=== PATIENT | female | born 2000 | race Two or more races ===

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

== ENCOUNTER → 2021-06-19 15:55 | Outpatient (BNVA) | payer OTHER, SELFPAY | PROVIDERS: PCP Physician Assistant; Referring Provider Physician Assistant; Visit Provider Nurse Practitioner | DX: K21.9 Gastro-esophageal reflux disease without esophagitis (principal); K59.00 Constipation, unspecified; R11.0 Nausea; R63.4 Abnormal weight loss | CPT/HCPCS: 99202 ==

== ENCOUNTER 2021-07-18 11:46 | Outpatient (REF) | payer OTHER, SELFPAY ==
--- NOTE | ~2021-07-18 | US_ITS ---
EXAMINATION: US ABDOMEN COMPLETE CLINICAL INFORMATION: Constipation. COMPARISON: None TECHNIQUE: Real-time imaging of the abdominal viscera. FINDINGS: PANCREAS: Normal. ABDOMINAL AORTA: The proximal, mid, and distal segments are normal in caliber. INFERIOR VENA CAVA: Visualized portions are normal. LIVER: Normal. The liver is normal in size. The liver contour is normal. Parenchymal echogenicity is normal. No focal hepatic lesion. There is no intrahepatic biliary duct dilatation seen. GALLBLADDER: Normal. The gallbladder is physiologically distended without evidence of stones, sludge, polyps, wall thickening or pericholecystic fluid. COMMON BILE DUCT: Normal in caliber measuring 0.4 cm in diameter. RIGHT KIDNEY: At the interpolar aspect, a 3 mm punctate focus is seen, which does not meet formal ultrasound criteria for a calculus. No hydronephrosis. No definite renal calculi or focal parenchymal lesions. The kidney measures 11.2 cm in maximum dimension. LEFT KIDNEY: Normal. No hydronephrosis. No renal calculi or focal parenchymal lesions. The kidney measures 10.3 cm in maximum dimension. SPLEEN: Normal. The spleen measures 10.1 cm in maximum dimension. FREE FLUID: None. US/US abdomen complete IMPRESSION: Unremarkable examination.
[2021-07-18 13:11] LABS: Alanine Aminotransferase 13 U/L (0-31); Albumin Level 4.4 g/dL (3.5-5.0); Alkaline Phosphatase 38 U/L (39-117); Anion Gap 12 (12-20); Aspartate Amino Transferase 15 U/L (5-31); Bilirubin Total 0.6 mg/dL (0.0-1.0); Blood Urea Nitrogen 10 mg/dL (9-16); C Reactive Protein 0.12 mg/dL (< or = 0.50); Calcium 9.2 mg/dL (8.4-10.2); Carbon Dioxide 23 mmol/L (22-29); Chloride 107 mmol/L (96-108); Estimated Glomerular Filt Rate > 60; Glucose Random 86 mg/dL (60-115); Potassium 4.4 mmol/L (3.3-5.1); Sodium 138 mmol/L (135-145)
[2021-07-18 13:33] LABS: TSH reflex Free T4 0.76 uIU/mL (0.32-4.0)
[2021-07-18 14:15] LABS: Appearance Urine CLEAR; Color Urine YELLOW; Glucose Urine UA NEG (NEG); Leukocyte Esterase Urine 2+ (NEG); Nitrite Urine NEG (NEG); PH 6.5 (5.0-8.0); UACC Culture Trigger YES; Urine Blood NEG (NEG); Urine Ketones NEG (NEG); Urine Protein NEG (NEG-TRACE)
[2021-07-18 14:53] LABS: Bacteria Urine 1+ /LPF; RBC Urine 0-2 /HPF (0); Squamous Epithelial Cell Urine 1+ /LPF
== END 2021-07-18 11:47 | disposition home or self-care (01) ==
LOC: HO.US 11:46
PROVIDERS: PCP Physician Assistant; Visit Provider Nurse Practitioner
DX: K21.9 Gastro-esophageal reflux disease without esophagitis (principal); K59.00 Constipation, unspecified; R11.0 Nausea; R63.4 Abnormal weight loss
CPT/HCPCS: 36415; 76700; 80053; 81001; 81003; 84443; 86140; 87086; 87338

== ENCOUNTER 2021-11-20 13:26 | Outpatient (AMB) | payer OTHER, SELFPAY ==
[2021-11-20 13:45] VITALS: BP 120/70; PULSE 88; O2SAT 99; BMI 30.4
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
== END 2021-11-20 14:40 | disposition home or self-care (01) ==
LOC: HO.HMGP 13:26
PROVIDERS: PCP Physician Assistant; Visit Provider Physician Assistant
DX: Z13.220 Encounter for screening for lipoid disorders (principal); L30.9 Dermatitis, unspecified; K21.9 Gastro-esophageal reflux disease without esophagitis; F41.9 Anxiety disorder, unspecified; F32.9 Major depressive disorder, single episode, unspecified; R63.4 Abnormal weight loss; Z30.011 Encounter for initial prescription of contraceptive pills; Z00.01 Encounter for general adult medical examination with abnormal findings; Z23 Encounter for immunization; J45.20 Mild intermittent asthma, uncomplicated; Z13.30 Encounter for screening examination for mental health and behavioral disorders, unspecified
CPT/HCPCS: 90471; 90686; 99499

== ENCOUNTER 2022-06-11 13:06 | Emergency (ER) | payer OTHER, SELFPAY ==
--- NOTE | ~2022-06-11 | CT_ITS ---
EXAMINATION: CT ABDOMEN AND PELVIS WITHOUT CONTRAST CLINICAL INFORMATION: Right-sided abdominal pain, vomiting and diarrhea. COMPARISON: None available. TECHNIQUE: Multidetector volumetric imaging was performed from the superior aspect of the liver through the pubic symphysis. Sagittal and coronal reformatted images were obtained on the technologist's workstation. This CT examination was performed using dose optimization techniques as appropriate, variously including the following: *Automated exposure control *Adjustment of mA and/or kV according to patient size (this includes techniques or standardized protocols for targeted exams where dose is matched to indication/reason for exam; i.e. extremities or head) *Use of iterative reconstruction technique DLP: 552 mGy-cm FINDINGS: LUNG BASES: The visualized lung bases are unremarkable. LIVER, GALLBLADDER, AND BILIARY TREE: The liver is normal in size, shape, and attenuation. No focal hepatic lesion or biliary ductal dilatation is present. The gallbladder is unremarkable with no evidence of radiopaque gallstones, gallbladder wall thickening, or obvious pericholecystic inflammatory changes. PANCREAS: Unremarkable. SPLEEN: Unremarkable. ADRENAL GLANDS: Unremarkable. KIDNEYS AND URETERS: The kidneys are normal in size, shape, and attenuation. No hydronephrosis, hydroureter, or calculi seen. No perinephric stranding. BLADDER: Unremarkable. GASTROINTESTINAL TRACT: There is scattered stool, gas and groundglass seen throughout the colon without distention. The small bowel loops are normal caliber. Appendix is normal caliber. No free fluid or free air seen. ABDOMINAL WALL: A small umbilical hernia containing fat is noted.. LYMPH NODES: Normal. VASCULAR: Unremarkable. PELVIC VISCERA: The uterus is anteverted and appears unremarkable. No free air or free fluid seen. OSSEOUS STRUCTURES: Unremarkable. CT/CT abdomen pelvis wo IV con IMPRESSION: Mild constipation otherwise no acute process seen. Fleischner guidelines were followed.
[2022-06-11 13:32] VITALS: BP 152/98; PULSE 93; RESP 18; TEMP 36.2; O2SAT 98; BMI 28.9
--- NOTE | 2022-06-11 13:33 | ED.ABDPAIN ---
HPI - Abdominal Pain General Chief Complaint: Abdominal Pain Stated Complaint: GI issues Time Seen by Provider: 06/11/22 19:17 Source: patient and family Mode of arrival: ambulatory Limitations: no limitations History of Present Illness HPI narrative: 21 yo female with history of asthma, anxiety, depression, GERD and eczema presents to the ER for evaluation of 5 days of upset stomach, nausea, and diarrhea. she states she has had generalized abdominal pain and ongoing nausea with intermittent dry heaving after eating. No vomit. She reports frequent loose stools, no blood or bile. But she did pass some mucus. She states she has seen GI in the past but never followed up. She is worried about a food intolerance like gluten. She denies any fevers, chills, urinary symptoms or pelvic pain. She denies chance of . No known sick contacts. She does get anxiety and nausea associated with anxiety. MD elicited complaint: abdominal pain Onset (ago): day(s) (5) Pain Consistency: intermittent Location: diffuse Severity: moderate Quality: aching Radiation: none Migration to: no migration Exacerbating factors: eating Relieving factors: nothing Associated symptoms: nausea, vomiting and diarrhea Related Data Home Medications Medication Instructions Recorded Confirmed fluoxetine 20 mg capsule mg PO 02/07/21 11/20/21 methylphenidate HCl 36 mg 36 mg PO BEDTIME 02/07/21 11/20/21 tablet,extended release 24 hr (Concerta) Previous Rx's Medication Instructions Recorded ibuprofen 600 mg tablet 600 mg PO Q8H PRN menstrual cramps 02/07/21 #90 tabs albuterol sulfate 90 mcg/actuation 2 puff inhalation Q4-6H PRN 10/19/21 aerosol inhaler shortness of breath or wheezing #6.7 grams triamcinolone acetonide 0.1 % 1 appl topical BID #80 grams 11/20/21 topical cream famotidine 40 mg tablet 40 mg PO DAILY #30 tabs 11/30/21 albuterol sulfate 90 mcg/actuation 2 puff inhalation Q4-6H PRN 12/31/21 aerosol inhaler (Proventil HFA) shortness of breath or wheezing #8.5 grams loratadine 10 mg tablet 10 mg PO DAILY PRN allergy 05/03/22 symptoms #90 tabs norethindrone (contraceptive) 0.35 0.35 mg PO DAILY #84 tabs 05/03/22 mg tablet ondansetron 4 mg disintegrating 4 mg PO Q8H PRN nausea and 06/11/22 tablet vomiting #10 tabs Allergies Allergy/AdvReac Type Severity Reaction Status Date / Time amoxicillin Allergy Unknown hives Verified 06/19/21 16:11 Review of Systems Review of Systems Yes all other systems are reviewed and are negative [facility] Past Medical History Surgical History (Updated 11/20/21 @ 13:46 by Amber Alcantara RN) No pertinent past surgical history Family History Family History (Updated 11/20/21 @ 13:49 by Amber Alcantara RN) Mother Hiatal hernia Type 1 diabetes Hypertension Fibromyalgia Depression Anxiety Father Hypertension Anxiety Depression Bipolar 1 disorder History of knee replacement Hypoglycemia Drug use disorder Social History Social History (Updated 11/20/21 @ 13:50 by Amber Alcantara RN) Household Members: Family Advance Directives: No Advance Directives Information Provided: No Cognitive needs: No Hearing needs: No Vision needs: Yes Physical Exam ED Vital Signs: Vital Signs - 24 hr 06/11/22 13:32 Temperature 97.1 F Pulse Rate 93 Respiratory Rate 18 Blood Pressure 152/98 H Pulse Oximetry 98 Oxygen Delivery Method Room Air BMI result Body Mass Index 28.9 Appearance: Alert. Oriented X3. No acute distress. Head: normocephalic, atraumatic. Eyes: Pupils equal, round and reactive to light. ENT: Pharynx normal. No tonsillar swelling or exudate. Neck: Normal inspection. Neck supple. CVS: Normal heart rate and rhythm. Pulses normal. Respiratory: No respiratory distress. Breath sounds normal. Abdomen: Soft with mild generalized tenderness, normal active BS x4 Skin: Skin warm and dry. Normal skin color. Normal skin turgor. No rashes. Extremities: No lower extremity edema. No joint swelling. Neuro/psych: Oriented X 3. No motor deficit. No sensory deficit. CN II-XII intact. Normal speech and cognition. Course Course Course Narrative: RME - 21 y/o female presents to the ER for evaluation of nausea and post-prandial watery diarrhea for the last 4 days. She has pain in her stomach and right side of her abd after she eating and intermittent dry heaving. Family history of Crohn's. She has a GI provider she never followed up with. Plan: labs and CT scan abd/pelvis Medical Decision Making Medical Decision Making [facility] Narrative: 21-year-old female presents the ER for evaluation of 5 days of intermittent abdominal pains, nausea, dry heaving, diarrhea. She is concerned about food intolerance like a gluten allergy. She was due to see GI but never followed up. She has an appointment at the end of June. On exam her abdomen is soft, mild diffuse tenderness but no point tenderness. No rebound or guarding. Her lab workup was unremarkable. CT scan showed some mild constipation but no acute findings. At this time patient is stable for discharge home with supportive care and outpatient follow-up. Jeff Ventura sent to her pharmacy. Encouraged food diary. Stable for DC Differential Diagnosis Differential Diagnoses: The differential diagnosis associated with the presentation includes gastroenteritis, gallstones, gastritis, GERD, appendicitis, cholecystitis, colitis, diverticulitis Lab Data [facility] Lab Attestation statement: I reviewed the patient's lab results. unremarkable lab workup 06/11/22 14:20 06/11/22 14:20 Labs: Lab Results 06/11/22 06/11/22 Range/Units 14:20 14:20 WBC 11.7 H (4.8-10.8) X10*3/uL RBC 5.45 (4.20-5.50) X10*6/uL Hgb 13.8 (12.0-16.0) g/dl Hct 43.9 (37.0-47.0) % MCV 80.6 (80.0-98.0) fL MCH 25.3 L (27.0-33.0) pg MCHC 31.4 (31.0-35.0) g/dl RDW 13.8 (11.0-16.0) % Plt Count 333 (160-400) X10*3/uL MPV 11.8 (9.4-12.3) fL Immature Gran % (Auto) 0.2 (0.0-0.4) % Neut % (Auto) 64.6 (45-73) % Lymph % (Auto) 23.7 (20-40) % Grady % (Auto) 8.6 (2-11) % Eos % (Auto) 2.2 (0-4) % Baso % (Auto) 0.7 (0-2) % Lymph # (Auto) 2.8 (1.2-4.9) X10*3/uL Grady # (Auto) 1.0 (0.1-1.2) X10*3/uL Eos # (Auto) 0.3 (0.0-0.4) X10*3/uL Baso # (Auto) 0.1 (0.0-0.2) X10*3/uL Abs Immat Gran (auto) 0.02 (0.00-0.03) X10*3/uL Absolute Neuts (auto) 7.6 (2.0-8.3) x10*3/uL Absolute Nucleated RBC 0.000 (0.0-0.012) X10*3/uL Nucleated RBC % (auto) 0.0 (0.0-0.2) /100WBC Sodium 141 (135-145) mmol/L Potassium 4.0 (3.3-5.1) mmol/L Chloride 108 (96-108) mmol/L Carbon Dioxide 19 L (22-29) mmol/L Anion Gap 18 (12-20) BUN 7 L (9-16) mg/dL Creatinine 1.02 (0.5-1.4) mg/dL Estim Creat Clear Calc 101.1 Estimated GFR > 60 Random Glucose 84 (60-115) mg/dL Calcium 10.2 D (8.4-10.2) mg/dL Magnesium 2.0 (1.6-2.6) mg/dL Total Bilirubin 1.4 H (0.0-1.0) mg/dL Direct Bilirubin 0.3 (0.0-0.5) mg/dL AST 18 (5-31) U/L ALT 11 (0-31) U/L Alkaline Phosphatase 46 (39-117) U/L Total Protein 8.0 (6.5-8.0) g/dL Albumin 5.0 (3.5-5.0) g/dL Lipase 17 (8-78) U/L Beta HCG, Quant < 2 mIU/mL Independent Interpretation I performed an independent interpretation of an: CT Scan Interpretation: unremarkable CT of the abdomen, agrees radiology read Radiology Impression Discussion of test interpretation with radiology: I have reviewed the radiologist's reading. Radiologist Impression: EXAMINATION: CT ABDOMEN AND PELVIS WITHOUT CONTRAST? CLINICAL INFORMATION: Right-sided abdominal pain, vomiting and diarrhea.? COMPARISON: None available. TECHNIQUE: Multidetector volumetric imaging was performed from the superior aspect of the liver through the pubic symphysis. Sagittal and coronal reformatted images were obtained on the technologist's workstation.? This CT examination was performed using dose optimization techniques as appropriate, variously including the following: *Automated exposure control *Adjustment of mA and/or kV according to patient size (this includes techniques or standardized protocols for targeted exams where dose is matched to indication/reason for exam; i.e. extremities or head) *Use of iterative reconstruction technique DLP: 552 mGy-cm FINDINGS: LUNG BASES: The visualized lung bases are unremarkable.? LIVER, GALLBLADDER, AND BILIARY TREE: The liver is normal in size, shape, and attenuation. No focal hepatic lesion or biliary ductal dilatation is present. The gallbladder is unremarkable with no evidence of radiopaque gallstones, gallbladder wall thickening, or obvious pericholecystic inflammatory changes.? PANCREAS: Unremarkable.? SPLEEN: Unremarkable.? ADRENAL GLANDS: Unremarkable.? KIDNEYS AND URETERS: The kidneys are normal in size, shape, and attenuation. No hydronephrosis, hydroureter, or calculi seen. No perinephric stranding. ? BLADDER: Unremarkable.? GASTROINTESTINAL TRACT: There is scattered stool, gas and groundglass seen throughout the colon without distention. The small bowel loops are normal caliber. Appendix is normal caliber. No free fluid or free air seen.? ABDOMINAL WALL: A small umbilical hernia containing fat is noted..? LYMPH NODES: Normal. VASCULAR: Unremarkable. PELVIC VISCERA: The uterus is anteverted and appears unremarkable. No free air or free fluid seen.? OSSEOUS STRUCTURES: Unremarkable.? CT/CT abdomen pelvis wo IV con IMPRESSION: Mild constipation otherwise no acute process seen.? External Record Review External record reviewed: Prior outpatient labs and Prior outpatient radiology Prescription Management I considered prescription management with: Pain Medication and Antibiotic Chronic Conditions Patient?s care impacted by: Other ( anxiety) Critical Care Time Critical Care Time Critical Care Time: No Discharge Plan Discharge Clinical Impression: Gastroenteritis Patient Disposition: Home, Self-Care Instructions: Gastroenteritis (DC) Additional Instructions: You lab workup today was unremarkable. Your CT scan was unremarkable. You most likely have a viral GI bug also known as gastroenteritis. Treatment is supportive care, symptoms usually resolve on their own. Recommend rest and plenty of oral hydration. Stick to a bland diet like soup and toast while you are not feeling well. Take the prescribed medication as needed for nausea. Recommend over the counter Pepto Bismol or Imodium for upset stomach and diarrhea. Follow up with your doctor as needed. If you develop new or worsening symptoms call 911 or come back to the ER for further evaluation. Prescriptions: New ondansetron 4 mg tablet,disintegrating 4 mg PO Q8H PRN (Reason: nausea and vomiting) Qty: 10 0RF No Action ibuprofen 600 mg tablet 600 mg PO Q8H PRN (Reason: menstrual cramps) Qty: 90 1RF albuterol sulfate 90 mcg/actuation HFA aerosol inhaler 2 puff inhalation Q4-6H PRN (Reason: shortness of breath or wheezing) Qty: 6.7 0RF Rx Instructions: Inhale 2 puffs every 4-6 hrs as needed for wheezing and SOB. famotidine 40 mg tablet 40 mg PO DAILY Qty: 30 0RF albuterol sulfate [Proventil HFA] 90 mcg/actuation HFA aerosol inhaler 2 puff inhalation Q4-6H PRN (Reason: shortness of breath or wheezing) Qty: 8.5 0RF loratadine 10 mg tablet 10 mg PO DAILY PRN (Reason: allergy symptoms) Qty: 90 0RF norethindrone (contraceptive) 0.35 mg tablet 0.35 mg PO DAILY Qty: 84 0RF triamcinolone acetonide 0.1 % cream 1 appl topical BID Qty: 80 1RF methylphenidate HCl [Concerta] 36 mg tablet extended release 24hr 36 mg PO BEDTIME fluoxetine 20 mg capsule PO Referrals: Denise Little PA-C [Primary Care Provider] - Interventions: ED Discharge Assessment Last Done: 06/11/22 19:15 Discharge Date/Time: 06/11/22 19:17
[2022-06-11 14:27] LABS: MANUAL DIFF FLAG NO
[2022-06-11 14:31] LABS: Basophils Absolute Auto 0.1 X10*3/uL (0.0-0.2); Basophils Percent Auto 0.7 % (0-2); Eosinophils Absolute Auto 0.3 X10*3/uL (0.0-0.4); Eosinophils Percent Auto 2.2 % (0-4); Hematocrit 43.9 % (37.0-47.0); Hemoglobin 13.8 g/dl (12.0-16.0); Imm Gran Abs Auto 0.02 X10*3/uL (0.00-0.03); Imm Gran Pct Auto 0.2 % (0.0-0.4); Lymphocytes Absolute Auto 2.8 X10*3/uL (1.2-4.9); Lymphocytes Percent Auto 23.7 % (20-40); Mean Corpuscular HGB Conc 31.4 g/dl (31.0-35.0); Mean Corpuscular Hemoglobin 25.3 pg (27.0-33.0); Mean Corpuscular Volume 80.6 fL (80.0-98.0); Mean Platelet Volume 11.8 fL (9.4-12.3); Monocytes Percent Auto 8.6 % (2-11); Neutrophils Absolute Auto 7.6 x10*3/uL (2.0-8.3); Neutrophils Percent Auto 64.6 % (45-73); Platelet Count 333 X10*3/uL (160-400); Red Blood Count 5.45 X10*6/uL (4.20-5.50); Red Cell Distribution Width 13.8 % (11.0-16.0); White Blood Count 11.7 X10*3/uL (4.8-10.8)
[2022-06-11 14:51] LABS: Alanine Aminotransferase 11 U/L (0-31); Alkaline Phosphatase 46 U/L (39-117); Anion Gap 18 (12-20); Aspartate Amino Transferase 18 U/L (5-31); Bilirubin Direct 0.3 mg/dL (0.0-0.5); Bilirubin Total 1.4 mg/dL (0.0-1.0); Blood Urea Nitrogen 7 mg/dL (9-16); Calcium 10.2 mg/dL (8.4-10.2); Carbon Dioxide 19 mmol/L (22-29); Chloride 108 mmol/L (96-108); Creatinine Clr Calc Pharmacy 101.1; Estimated Glomerular Filt Rate > 60; Glucose Random 84 mg/dL (60-115); Lipase 17 U/L (8-78); Sodium 141 mmol/L (135-145)
[2022-06-11 14:53] LABS: HCG Quantitative < 2 mIU/mL
== END 2022-06-11 19:17 | disposition home or self-care (01) ==
PROVIDERS: Physician Assistant; Emergency Provider Emergency Medicine; PCP Physician Assistant
DX: K52.9 Noninfective gastroenteritis and colitis, unspecified (principal); R11.2 Nausea with vomiting, unspecified; F41.9 Anxiety disorder, unspecified; Z79.899 Other long term (current) drug therapy
CPT/HCPCS: 36415; 74176; 80048; 80076; 83690; 83735; 84702; 85025; 99282; 99284

== ENCOUNTER 2023-10-23 13:43 | Outpatient (AMB) | payer OTHER, SELFPAY ==
[2023-10-23 13:51] VITALS: BP 118/74; PULSE 94; TEMP 36.9; O2SAT 99; BMI 30.9
--- NOTE | 2023-10-23 13:51 | AM.OFFWIN_ITS ---
Intake Vital Signs 10/23/23 13:51 Height 5 ft 8 in Weight 203 lb BMI 30.9 BP 118/74 Blood Pressure Location Lt brachial Position Sitting Pulse 94 Pulse Source Pulse Oximeter Temp 98.4 F Temp Source Oral Pulse Oximetry (%) 99 Oxygen Delivery Method Room Air Intake Visit Reasons: EP stomach, headache (BP), High BS/? control Intake Note: pt c/o abdominal pain, mostly at night. nausea after eating, occasional vomiting after eating, High blood sugar. Fasting BS 190 mg/ml this morning. ? if symptoms from Nexplanon implant. Patient Tobacco Use Status: Never used Tobacco Allergies amoxicillin Allergy (Unknown, Verified 10/23/23 14:01) hives Do you need a note to return to daycare/school/sports/work: No HPI HPI Comments History of Present Illness Details Patient is a 22-year-old female with multiple complaints. She states she has random stomach pain sometimes she vomits sometimes she just nauseous sometimes she does not go to the bathroom regularly. She has tried eating less sugar less fried foods and less foods that are bad for her and she does not really think it has helped at all. She is wondering if these might be side effects from her Nexplanon. She states she did have her gallbladder checked about a year ago and it was fine. She also states she smokes marijuana and while she did take a 5 month break, she does not remember if she had these symptoms during that break or not. She states nothing seems to make it worse or better. She denies any fevers or diarrhea. She also states she has been checking her blood sugar using her mother's meter. She does not wash her hands before checking her blood sugar nor does she use an alcohol wipe but she states that her blood sugar was up to 400 on one occasion that was 190 this morning. She denies any blurry vision, dizziness, drinking more water than normal, urinating more than normal or unintentional weight loss. She states her mother was diagnosed with type 2 diabetes at her age. [facility] Surgical History (Updated 11/20/21 @ 13:46 by Amber Alcantara RN) No pertinent past surgical history Family History (Updated 11/20/21 @ 13:49 by Amber Alcantara RN) Mother Hiatal hernia Type 1 diabetes Hypertension Fibromyalgia Depression Anxiety Father Hypertension Anxiety Depression Bipolar 1 disorder History of knee replacement Hypoglycemia Drug use disorder Social History (Updated 11/20/21 @ 13:50 by Amber Alcantara RN) Household Members: Family Both parents involved: Yes Patient Tobacco Use Status: Never used Tobacco Cognitive needs: No Hearing needs: No Vision needs: Yes Review of Systems Const All systems reviewed & are unremarkable except as noted in HPI and below Physical Exam Vital Signs: Last Vital Signs Temp 98.4 F 10/23/23 13:51 Pulse 94 10/23/23 13:51 BP 118/74 10/23/23 13:51 Pulse Ox 99 10/23/23 13:51 Oxygen Delivery Method Room Air 10/23/23 13:51 BMI result Body Mass Index 30.9 Const General: cooperative, healthy appearing, comfortable, no acute distress and well developed Orientation/consciousness: patient oriented x3 Limitations: no limitations HEENT Head: Yes normal to inspection Ears: hearing grossly normal bilaterally General nose exam: Normal external nose present Face and sinus: Yes normal facial exam Eyes General: appearance normal, both eyes and all related structures Neck Neck: Yes normal visual inspection and Yes full ROM Resp Effort & Inspection: normal respiratory effort and able to speak in complete sentences Skin General skin exam: no rashes or lesions noted Neuro General: patient oriented x3 Extrem General: Yes normal to inspection Results AMB Random Glucose (hemocue) AMB Random Glucose (hemocue) 103 mg/dL Last Edit by Leonid Brar CMA on 10/23/23 14:13 Results Reviewed Results Reviewed: Laboratory Last Values Random Glu (Clinic) 103 mg/dL 10/23/23 14:12 Assessment & Plan Assessment & Plan (1) Nausea and vomiting: Code(s): R11.2 - Nausea with vomiting, unspecified Qualifiers: Vomiting type: unspecified Qualified Code(s): R11.2 - Nausea with vomiting, unspecified Plan: Point of care in the office today is 103. Reviewed with patient if she is going to check her blood sugars, when to check them and to keep a log and to make sure she is washing her hands before she checks her blood sugar. Recommended she follow up with her cash control specialist once she has this log if her symptoms continue. Did educate her on the symptoms of diabetes which she does not appear to be having. Plan See above Orders: Orders AMB Random Glucose (hemocue) Today Z13.9 - Encounter for screening, unspecified Coding Level of Care Code Est Pt Level 3 (89139) Diagnoses Nausea and vomiting, unspecified vomiting type R11.2 Vomiting type: unspecified
== END 2023-10-23 14:50 | disposition home or self-care (01) ==
PROVIDERS: PCP Physician Assistant; Visit Provider Physician Assistant
DX: R11.2 Nausea with vomiting, unspecified (principal)
CPT/HCPCS: 82948; 99213

== ENCOUNTER 2023-11-13 10:40 | Outpatient (AMB) | payer OTHER, SELFPAY ==
[2023-11-13 10:42] VITALS: BP 112/78; PULSE 57; O2SAT 98
--- NOTE | 2023-11-13 10:42 | MHC.PC.OV ---
Vital Signs 11/13/23 10:42 Height 5 ft 8 in Weight 197 lb 0.4 oz BMI 30.0 BP 112/78 Blood Pressure Location Lt brachial Position Sitting Pulse 57 Pulse Source Pulse Oximeter Pulse Oximetry (%) 98 Oxygen Delivery Method Room Air Intake Visit Reasons: establish care/high blood sugar and high bp Intake Note: Patient is a new patient here to establish care. Montessori Program Director Required: No Allergies amoxicillin Allergy (Unknown, Verified 11/13/23 10:55) hives Medication List - Last Reconciled 11/13/23 by Marisa Liu PA-C albuterol sulfate 90 mcg/actuation (Proventil HFA) 2 puffs inhalation Q4-6H PRN etonogestrel (Nexplanon) subdermal fluoxetine mg PO loratadine 10 mg PO DAILY PRN methylphenidate HCl ER (Concerta) 54 mg PO QAM triamcinolone acetonide 0.1% 1 appl topical BID Tobacco use date assessed: 11/13/23 Dental Screening Dental Screen Date: 11/13/23 Did you have a dental visit in the last 12 months?: No Did you have a dental problem in the last 6 months where you did not have access to dental care?: No HPI establish care/high blood sugar and high bp HPI Details 22-year-old female with past medical history of eczema, anxiety, depression, asthma coming to the office for the 1st time. She elderly follows with psychiatry and is on Concerta and fluoxetine for ADHD and depression. She sees Gynecology through [facility] and was [facility] and receives annual Pap exams through them. She has concern of high blood pressure she has been taking at home and has been noticing elevated readings. She is also concerned as diabetes runs in her family and she wants to keep a close eye her blood sugar. She has no other concerns today. [facility], [facility] Surgical History No pertinent past surgical history Family History Mother Hiatal hernia Type 1 diabetes Hypertension Fibromyalgia Depression Anxiety Father Hypertension Anxiety Depression Bipolar 1 disorder History of knee replacement Hypoglycemia Drug use disorder Social History Household Members: Family Both parents involved: Yes Housing: House Patient Tobacco Use Status: Never used Tobacco (marijuana ) service: No Current occupational status: employed Current occupation: dispatcher Cognitive needs: No Hearing needs: No Vision needs: Yes Questionnaire PHQ-9 Over the last 2 weeks, how often have you been bothered by any of the following problems? 1. Little interest or pleasure in doing things: several days 2. Feeling down, depressed, or hopeless: several days 3. Trouble falling or staying asleep, or sleeping too much: several days 4. Feeling tired or having little energy: several days 5. Poor appetite or overeating: several days 6. Feeling bad about yourself - or that you are a failure or have let yourself or your family down: several days 7. Trouble concentrating on things, such as reading the newspaper or watching television: several days 8. Moving or speaking so slowly that other people could have noticed. Or the opposite - being so fidgety or restless that you have been moving around a lot more than usual: several days 9. Thoughts that you would be better off or of hurting yourself in some way: several days Total score: 9 Depression Screening Interpretation: Positive Depression Screening Follow-up: Existing condition and In treatment Depression Screening Done: Yes 62702 - PHQ-9 Billing: Yes Source: Developed by Drs. Karlos Lombardi, Penny Little, Marino Bar and colleagues, with an educational kingsley from [employer]. Thrive Questionnaire Date Thrive assessed: 11/13/23 I am a: Patient What is your living situation today?: I have a steady place to live Within the past 12 months, did the food you bought not last and you didn't have the money to get more?: Never true Within the past 12 months, did you worry whether your food would run out before you got money to buy more?: Never true Do you have trouble paying for medicines?: No Do you have trouble getting transportation to medical appointments?: No Do you have trouble paying your heating and electricity bill?: No Do you have trouble taking care of your child, family member or friend?: No Do you have trouble with day-to-day activities such as bathing, preparing meals, shopping, managing finances, etc.?: No Are you currently unemployed and looking for a job?: No Are you interested in more education?: No Please select the resources that you would like help with: None Currently or been in a relationship where the following occur: No concerns reported THRIVE Score: 0 AUDIT C Alcohol Use Questionnaire (AUDIT-C) 1. How often do you have a drink containing alcohol?: Monthly or less 2. How many drinks containing alcohol do you have on a typical day when you are drinking?: 1 or 2 3. How often do you have six or more drinks on one occasion?: Never Total Score: 1 ARPIT-7 AMB Questionnaire ARPIT-7 Date ARPIT - 7 assessed: 11/13/23 Feeling nervous, anxious, or on edge: 1 = Several days Not being able to stop or control worryin = Several days Worrying too much about different things: 1 = Several days Trouble relaxin = Several days Being so restless that it is hard to sit still: 1 = Several days Becoming easily annoyed or irritable: 1 = Several days Feeling afraid as if something awful might happen: 1 = Several days Total ARPIT-7 score (0-4 normal; 5-9 mild; 10-14 moderate; 15-21 severe): 7 Source: Developed by Drs. Karlos Lombardi, Penny Little, Marino Bar and colleagues, with an educational kingsley from [employer]. ARPIT-7 Assessment Billing ARPIT-7 Assessment Tool: ARPIT-7 Assessment 04662 Review of Systems Const Denies body aches, Denies fatigue, Denies fever(s), Denies frequent falls, Reports headache(s) (occasional) and Denies weakness Eyes Reports no additional complaints and Denies change in vision ENT Denies dysphagia, Denies dizziness, Denies facial pain, Reports headache(s) (occasional), Denies nasal congestion and Denies odynophagia Card Denies chest pain, Denies syncope, Denies irregular heart rhythm, Denies leg edema, Denies lightheadedness and Denies dyspnea Resp Denies cough and Denies dyspnea GI Details: occasional epigastric pain resolves with burping/stools Reports constipation, Denies dysphagia, Denies dyspepsia, Denies diarrhea, Denies nausea, Denies odynophagia and Denies vomiting Denies urinary frequency, Denies dysuria, Denies urinary hesitancy and Denies urinary urgency Musc Denies back pain and Denies myalgias Skin/Breast Reports system reviewed and no additional complaints, except as documented Neuro Denies dizziness, Denies syncope, Denies frequent falls, Reports headache(s) (occasional) and Denies weakness Psych Reports no additional complaints Endo Denies fatigue Physical exam (Primary Care) Vital Signs: Last Vital Signs Pulse 57 11/13/23 10:42 BP 112/78 11/13/23 10:42 Pulse Ox 98 11/13/23 10:42 Oxygen Delivery Method Room Air 11/13/23 10:42 BMI result Body Mass Index 30.0 Tobacco/Smoking Status: Tobacco use Status Tobacco use date assessed 11/13/23 11/13/23 10:43 Patient Tobacco Use Status Never used Tobacco ( 11/13/23 10:50 marijuana ) PHQ-9: PHQ-9 Score PHQ-9: Total score 9 11/13/23 11:00 Depression Screening Interpretation: Positive Depression Screening Follow-up: Existing condition and In treatment Thrive Assessment: Date of Thrive Assessment Date Thrive assessed 11/13/23 11/13/23 10:43 Currently or been in a relationship where the following occur: No concerns reported Const General: cooperative, healthy appearing, comfortable and no acute distress Orientation/consciousness: patient oriented x3 HENMT Head: Yes normocephalic Ears: hearing grossly normal bilaterally General nose exam: Normal external nose present Eyes General: appearance normal, both eyes and all related structures Conjunctivae: conjunctivae normal Neck Neck: Yes full ROM and Yes no lymphadenopathy Resp Effort & Inspection: normal respiratory effort Auscultation: clear to auscultation bilaterally, no crackles, no rales, no rhonchi and no wheezes Cardio Rate: regular rate Rhythm: regular rhythm GI Inspection: Yes normal to inspection Palpation (GI): Soft to palpation, not firm, nontender, no guarding and not rigid Skin General skin exam: no rashes or lesions noted Neuro General: patient oriented x3 Gait exam (Neuro): Normal gait present Extrem General: Yes normal to inspection, Yes full ROM and No edema Psych Affect: normal affect Attitude: cooperative Insight: Good insight present (Psych) Judgement: Good judgement present (Psych) Results AMB Hemoglobin A1c AMB Hemoglobin A1c 5.0 % Last Edit by LIVAN Rendon on 11/13/23 11:02 Coding Level of Care Code New Pt Level 4 (65009) Diagnoses Mild intermittent asthma J45.20 Eczema L30.9 Anxiety and depression F41.9; F32.9 Additional Codes ARPIT-7 Assessment Billing - ARPIT-7 Assessment Tool: ARPIT-7 Assessment 30640 ([id number]) Assessment & Plan Assessment & Plan (1) Mild intermittent asthma: Code(s): J45.20 - Mild intermittent asthma, uncomplicated Category: Medical Plan: Uses inhaler less than once weekly and feels symptoms are well managed at this time. Continue to avoid triggers such as allergens and smoke. (2) Eczema: Comment: well controlled with occ use of triamcinolone Code(s): L30.9 - Dermatitis, unspecified Category: Medical Plan: No concerns at this time. (3) Anxiety and depression: Comment: Follows with psychiatrist Radha Eugene - takes prozac and concerta. Code(s): F41.9 - Anxiety disorder, unspecified; F32.9 - Major depressive disorder, single episode, unspecified Category: Medical Plan: continue on current medication regimen. Plan Patient had concerns today of elevated blood sugar and blood pressure both of which appear under good control. We will continue to monitor for signs of DM or HTN and follow up at annual exam in 3 months. This note was constructed using voice recognition software. While every effort has been made to ensure accuracy and lanolin plant operator, still areas may have been included sometimes these areas may affect the content or meeting of the given symptoms. Total time spent caring for the patient today was 30 minutes. This includes time spent before the visit reviewing the chart, time spent during the visit, and time spent after the visit and documentation. Orders: Orders AMB Hemoglobin A1c Today Z13.9 - Encounter for screening, unspecified Comprehensive Met. Panel Today Z00.00 - Encounter for general adult medical examination without abnormal findings Vitamin D 25-OH (D2 and D3) Today Z00.00 - Encounter for general adult medical examination without abnormal findings Complete Blood Count Auto Diff Today Z00.00 - Encounter for general adult medical examination without abnormal findings TSH reflex Free T4 Today Z00.00 - Encounter for general adult medical examination without abnormal findings Free T4 (Free Thyroxine) Today Z00.00 - Encounter for general adult medical examination without abnormal findings Vitamin B12 and Folate Today Z00.00 - Encounter for general adult medical examination without abnormal findings UA CC w/rflx Micro + Cult Today R35.89 - Other polyuria
== END 2023-11-13 11:15 | disposition home or self-care (01) ==
PROVIDERS: PCP Physician Assistant
DX: J45.20 Mild intermittent asthma, uncomplicated (principal); L30.9 Dermatitis, unspecified; F41.9 Anxiety disorder, unspecified; F32.9 Major depressive disorder, single episode, unspecified; Z13.9 Encounter for screening, unspecified

== ENCOUNTER 2023-11-13 10:40 | Outpatient (REF) | payer OTHER, SELFPAY ==
[2023-11-13 11:53] LABS: MANUAL DIFF FLAG NO
[2023-11-13 12:30] LABS: Basophils Absolute Auto 0.1 X10*3/uL (0.0-0.2); Basophils Percent Auto 0.9 % (0-2); Eosinophils Absolute Auto 0.2 X10*3/uL (0.0-0.4); Eosinophils Percent Auto 2.7 % (0-4); Hematocrit 40.7 % (37.0-47.0); Hemoglobin 13.2 g/dl (12.0-16.0); Imm Gran Abs Auto 0.03 X10*3/uL (0.00-0.03); Imm Gran Pct Auto 0.4 % (0.0-0.4); Lymphocytes Absolute Auto 2.2 X10*3/uL (1.2-4.9); Lymphocytes Percent Auto 26.9 % (20-40); Mean Corpuscular HGB Conc 32.4 g/dl (31.0-35.0); Mean Corpuscular Hemoglobin 26.7 pg (27.0-33.0); Mean Corpuscular Volume 82.2 fL (80.0-98.0); Mean Platelet Volume 11.5 fL (9.4-12.3); Monocytes Absolute Auto 0.6 X10*3/uL (0.1-1.2); Monocytes Percent Auto 7.9 % (2-11); Neutrophils Percent Auto 61.2 % (45-73); Platelet Count 244 X10*3/uL (160-400); Red Blood Count 4.95 X10*6/uL (4.20-5.50); White Blood Count 8.1 X10*3/uL (4.8-10.8)
[2023-11-13 13:03] LABS: Alanine Aminotransferase 11 U/L (0-31); Albumin Level 4.3 g/dL (3.5-5.0); Alkaline Phosphatase 37 U/L (39-117); Anion Gap 13 (12-20); Aspartate Amino Transferase 15 U/L (5-31); Bilirubin Total 0.8 mg/dL (0.0-1.0); Blood Urea Nitrogen 8 mg/dL (9-16); Calcium 9.9 mg/dL (8.4-10.2); Carbon Dioxide 21 mmol/L (22-29); Chloride 109 mmol/L (96-108); Estimated Glomerular Filt Rate > 60; Glucose Random 85 mg/dL (60-115); Potassium 4.2 mmol/L (3.3-5.1); Sodium 139 mmol/L (135-145); Total Protein 6.9 g/dL (6.5-8.0)
[2023-11-13 13:12] LABS: Appearance Urine Cloudy; Color Urine Yellow; Glucose Urine UA Negative (Negative); Leukocyte Esterase Urine Large (3+) (Negative); Nitrite Urine Negative (Negative); UMIC TRIGGER UACC YES; Urine Blood Negative (Negative); Urine Ketones Negative (Negative); Urine Protein Negative (Neg-Trace)
[2023-11-13 13:21] LABS: Free T4 (Free Thyroxine) 0.97 ng/dL (0.71-1.85); TSH reflex Free T4 2.02 uIU/mL (0.32-4.0)
[2023-11-13 13:27] LABS: Folate 10.9 ng/mL (> or = 4.0); Vitamin B12 612 pg/mL (200-900)
[2023-11-13 13:33] LABS: Bacteria Urine 3+ (None Seen); Hyaline Casts Urine 0-2 /LPF (0-2); RBC Urine 0-2 /HPF (0-2); UACC Culture Trigger YES
[2023-11-20 15:13] LABS: Vitamin D 25-OH, D2 <4 ng/mL; Vitamin D 25-OH, D3 23 ng/mL; Vitamin D 25-OH, Total 23 ng/mL (30-100)
== END 2023-11-13 10:41 | disposition home or self-care (01) ==
LOC: HO.LAB 10:40
PROVIDERS: PCP Physician Assistant
DX: J45.20 Mild intermittent asthma, uncomplicated (principal); L30.9 Dermatitis, unspecified; F41.9 Anxiety disorder, unspecified; F32.9 Major depressive disorder, single episode, unspecified; R35.89 Other polyuria; Z00.00 Encounter for general adult medical examination without abnormal findings
CPT/HCPCS: 36415; 80053; 81001; 81003; 82306; 82607; 82746; 83036; 84439; 84443; 85025; 87086; 96127; 99202

== ENCOUNTER 2023-11-20 14:52 | Outpatient (AMB) | payer OTHER, SELFPAY ==
--- NOTE | 2023-11-20 14:55 | MHC.OFFVIS ---
Vital Signs 11/20/23 15:14 Height 5 ft 8 in Weight 200 lb 9.93 oz BMI 30.5 BP 100/55 L Blood Pressure Location Lt brachial Position Sitting Intake Visit Reasons: Follow up Gastroenteritis Intake Note: Patient presents to in office visit today in follow up of gastroenteritis. CC: Patient c/o on and off epigastric pain at night, nausea, constipation, heartburn, and acid reflux. Denies other GI symptoms. Performance Improvement Manager Required: No Accompanied by: Self / Same As Patient Allergies amoxicillin Allergy (Unknown, Verified 11/20/23 15:20) hives HPI HPI Follow up Gastroenteritis: Details: Assessment & Plan (1) Nausea: ?Code(s): R11.0 - Nausea ?Plan: She has had HB since she was a child. More recently she came home sick (with anxiety) from college in February, and she was dry heaving etc. Since then she has had lingering nausea that comes and goes, it is a little relieved with burping. She will have it every day, and it will last about a 1/2 hr between episodes. It is worse with greasier foods and fast foods (at least a little bit, she is somewhat uncertain about this).? She has a little globus sensation that gags her. Her GERD in childhood manifested as a dry cough that resolved with H2 therapy.? She felt that the famotidine work better for her than Prilosec in the past.? Her mother is on Prilosec however . . She smokes MJ sometimes and had some worry re:? Cannabinoid hyperemesis syndrome.? But she does not fit the exact profile of severe vomiting and having relief only when sitting in a very hot shower etc.. She is having soft stools, and if she does not use the BR at the urge she will get more nauseated. No watery diarrhea no fecal in continence. She has the sensation of incomplete evacuation. She does feel she is bloated and has gas, not particularly malodorous. Her mother has similar sx with GERD and a HH, her maternal grandmother had Crohns. She had a maternal aunt with GB disease. Her father suffered CIC and takes fiber and Miralax.? So far she knows there is no family history of stomach cancer. No new meds at that time. she does not take much NSAIDS, no ETOH, no hot/spicy foods, 1c coffee a day. She smokes. She has unintentionally lost wt going from 250lb to 175 lbs over 2 years. Her appetite changed, she is not sure why.? Certainly this more rapid weight loss is concerning and could be a precipitant for gallstones. She feels better when she has food in her stomach, worse when empty. At this point I am going to get a complete Chem panel to see what her liver chemistry looks like, I urinalysis mostly to see if she has any glucosuria, and ultrasound to check for gallstones, a barium swallow to see if she has any significant hiatal hernia, and an H pylori stool.? I think will try treating her feeling of incomplete evacuation is constipation with some senna and see how she response to this as well.? The differential diagnosis is quite wide and could come down to an anxiety reaction but, as I explained to the patient, we want to make sure we rule out any more severe pathology before we hang or hats on that as a diagnosis. She is agreeable to the plan and will see her in 3 weeks to evaluate any results we have that time and her response to the senna. (2) Weight loss: ?Code(s): R63.4 - Abnormal weight loss (3) Esophageal reflux: ?Code(s): K21.9 - Gastro-esophageal reflux disease without esophagitis (4) Constipation: ?Code(s): K59.00 - Constipation, unspecified ? ? ? Orders: Orders Comprehensive Met. Panel Today K21.9 - Gastro-esophageal reflux disease without esophagitis ? H pylori Ag Stool Today K21.9 - Gastro-esophageal reflux disease without esophagitis ? US abdomen complete Today K21.9 - Gastro-esophageal reflux disease without esophagitis, K59.00 - Constipation, unspecified, R11.0 - Nausea ? TSH reflex Free T4 Today R11.0 - Nausea, R63.4 - Abnormal weight loss ? UA CC w/rflx Micro + Cult Today R11.0 - Nausea, R63.4 - Abnormal weight loss ? C Reactive Protein Today R63.4 - Abnormal weight loss ? FL barium swallow Today K21.9 - Gastro-esophageal reflux disease without esophagitis, R11.0 - Nausea ? Medications: New sennosides (senna) 17.2 mg (2 x 8.6 mg) PO BEDTIME 30 days 60 caps 3RF constipation K59.00 - Constipation, unspecified ? LABS: Laboratory Tests 07/18/21 11/13/23 14:50 11:52 WBC 8.1 Hgb 13.2 Hct 40.7 Plt Count 244 D Estimated GFR > 60 Total Bilirubin 0.8 AST 15 ALT 11 Alkaline Phosphatase 37 L TSH 2.02 Free T4 0.97 Stool H. pylori Ag negative ULTRASOUND OF THE ABDOMEN 07/19/21 FINDINGS: PANCREAS: Normal. ABDOMINAL AORTA: The proximal, mid, and distal segments are normal in caliber. INFERIOR VENA CAVA: Visualized portions are normal. LIVER: Normal. The liver is normal in size. The liver contour is normal. Parenchymal echogenicity is normal. No focal hepatic lesion. There is no intrahepatic biliary duct dilatation seen. GALLBLADDER: Normal. The gallbladder is physiologically distended without evidence of stones, sludge, polyps, wall thickening or pericholecystic fluid. COMMON BILE DUCT: Normal in caliber measuring 0.4 cm in diameter. RIGHT KIDNEY: At the interpolar aspect, a 3 mm punctate focus is seen, which does not meet formal ultrasound criteria for a calculus. No hydronephrosis. No definite renal calculi or focal parenchymal lesions. The kidney measures 11.2 cm in maximum dimension. LEFT KIDNEY: Normal. No hydronephrosis. No renal calculi or focal parenchymal lesions. The kidney measures 10.3 cm in maximum dimension. SPLEEN: Normal. The spleen measures 10.1 cm in maximum dimension. FREE FLUID: None. US/US abdomen complete IMPRESSION: Unremarkable examination. BARIUM SWALLOW SCHEDULED FOR 08/07/2021 TODAY'S VISIT Patient has been lost to follow-up since 06/2021 She continues to struggle with CIC, she never tried the senna - some concerns re: diarrhea. She has upper abd pain and nausea at night, this is at times better with burping and a good BM - may be worse with certain foods. FHX GB disease in aunt, but [address] = no gallstones. Start trial of senna - she is agreeable. ROV 2 weeks PFSH Surgical History No pertinent past surgical history Family History Mother Hiatal hernia Type 1 diabetes Hypertension Fibromyalgia Depression Anxiety Father Hypertension Anxiety Depression Bipolar 1 disorder History of knee replacement Hypoglycemia Drug use disorder Social History Household Members: Family Both parents involved: Yes Housing: House Patient Tobacco Use Status: Never used Tobacco (marijuana ) service: No Current occupational status: employed Current occupation: dispatcher Cognitive needs: No Hearing needs: No Vision needs: Yes Review of Systems Const Denies fatigue, Denies fever(s), Denies night sweats, Denies poor appetite and Denies weight loss Eyes Reports requires corrective lenses ENT Reports Normal hearing present, Denies dental pain, Denies dysphagia, Denies hearing loss, Denies mouth pain, Denies odynophagia, Denies throat swelling, Denies tongue swelling and Reports other (Dentition adequate) Card Reports no additional complaints Resp Reports no additional complaints GI Details: Reports abdominal pain, Denies melena, Denies bloating, Denies hematochezia, Reports constipation, Denies GI cramping, Denies dysphagia, Denies excessive flatus, Denies early satiety, Denies heartburn, Denies diarrhea, Reports nausea, Denies odynophagia, Denies vomiting and Denies hematemesis Skin/Breast Denies pruritus, Denies lesions, Denies rash and Denies jaundice Neuro Reports Normal hearing present and Denies Abnormal speech present Endo Denies fatigue Aller/Immun Denies throat swelling and Denies tongue swelling Physical Exam Vital Signs: Last Vital Signs BP 100/55 L 11/20/23 15:14 BMI result Body Mass Index 30.5 Const General: cooperative, no acute distress, well developed and well groomed Nutritional Appearance: well nourished and obese Orientation/consciousness: oriented to person, oriented to place and oriented to time Limitations: No language barrier HEENT Head: Yes normocephalic and Yes atraumatic Eyes General: appearance normal, both eyes and all related structures Pupils: Equal, round and reactive pupils present Neck Neck: Yes normal visual inspection and Yes no lymphadenopathy Thyroid: Thyroid normal Resp Effort & Inspection: normal respiratory effort and able to speak in complete sentences Auscultation: clear to auscultation bilaterally Cardio Rate: regular rate Rhythm: regular rhythm Heart sounds: Normal, physiologic split S2 sound present Peripheral pulses: radial pulses present and posterior tibial pulses present GI Inspection: No distended, No Abdominal panniculus present and Yes obesity Palpation (GI): Soft to palpation, nontender, no guarding, not rigid and No hepatosplenomegaly present Percussion: Yes normal to percussion Auscultation: normal bowel sounds Rectal Exam - Female: deferred Skin General skin exam: no rashes or lesions noted, turgor normal, skin not dry, no jaundice, No spider nevi and no striae Rashes: no rashes Nails: normal Neuro General: oriented to person, oriented to place and oriented to time Cranial nerves: Yes Equal, round and reactive pupils present and Yes Normal hearing present Speech: No Abnormal speech present Extrem General: Yes normal to inspection, No clubbing, No cyanosis and No edema Psych Appearance: grossly normal and well kempt Mental Status: mental status grossly normal Speech and movement: Normal speech and movement present Affect: normal affect Attitude: cooperative Thought process: Normal thought process present and not confabulating Thought content: Normal thought content present Insight: Limited insight present (Psych) Judgement: Limited judgement present (Psych) Results Reviewed Results Reviewed: Laboratory Tests 07/18/21 11/13/23 14:50 11:52 WBC 8.1 Hgb 13.2 Hct 40.7 Plt Count 244 D Estimated GFR > 60 Total Bilirubin 0.8 AST 15 ALT 11 Alkaline Phosphatase 37 L TSH 2.02 Free T4 0.97 Stool H. pylori Ag negative ULTRASOUND OF THE ABDOMEN 07/19/21 FINDINGS: PANCREAS: Normal. ABDOMINAL AORTA: The proximal, mid, and distal segments are normal in caliber. INFERIOR VENA CAVA: Visualized portions are normal. LIVER: Normal. The liver is normal in size. The liver contour is normal. Parenchymal echogenicity is normal. No focal hepatic lesion. There is no intrahepatic biliary duct dilatation seen. GALLBLADDER: Normal. The gallbladder is physiologically distended without evidence of stones, sludge, polyps, wall thickening or pericholecystic fluid. COMMON BILE DUCT: Normal in caliber measuring 0.4 cm in diameter. RIGHT KIDNEY: At the interpolar aspect, a 3 mm punctate focus is seen, which does not meet formal ultrasound criteria for a calculus. No hydronephrosis. No definite renal calculi or focal parenchymal lesions. The kidney measures 11.2 cm in maximum dimension. LEFT KIDNEY: Normal. No hydronephrosis. No renal calculi or focal parenchymal lesions. The kidney measures 10.3 cm in maximum dimension. SPLEEN: Normal. The spleen measures 10.1 cm in maximum dimension. FREE FLUID: None. US/US abdomen complete IMPRESSION: Unremarkable examination. Assessment & Plan Assessment & Plan (1) Chronic idiopathic constipation: Code(s): K59.04 - Chronic idiopathic constipation Category: Medical Plan Patient has been lost to follow-up since 06/2021 She continues to struggle with CIC, she never tried the senna - some concerns re: diarrhea. She has upper abd pain and nausea at night, this is at times better with burping and a good BM - may be worse with certain foods. FHX GB disease in aunt, but [address] = no gallstones. Start trial of senna - she is agreeable. ROV 2 weeks Medications: New sennosides (Senna Laxative) 17.2 mg (2 x 8.6 mg) PO BEDTIME 60 tabs 3RF K59.04 - Chronic idiopathic constipation Coding Level of Care Code Est Pt Level 3 (66995) Diagnoses Chronic idiopathic constipation K59.04
[2023-11-20 15:14] VITALS: BP 100/55; BMI 30.5
== END 2023-11-20 16:19 | disposition home or self-care (01) ==
PROVIDERS: PCP Physician Assistant; Visit Provider Nurse Practitioner
DX: K59.04 Chronic idiopathic constipation (principal)
CPT/HCPCS: 99213

== ENCOUNTER → 2023-11-20 14:52 | Outpatient (BNVA) | payer OTHER, SELFPAY | PROVIDERS: PCP Physician Assistant; Visit Provider Nurse Practitioner | DX: K52.9 Noninfective gastroenteritis and colitis, unspecified (principal); K21.9 Gastro-esophageal reflux disease without esophagitis; K59.00 Constipation, unspecified; R11.0 Nausea; R63.4 Abnormal weight loss | CPT/HCPCS: 99212 ==

== ENCOUNTER 2024-02-13 13:51 | Outpatient (AMB) | payer OTHER, SELFPAY ==
--- NOTE | 2024-02-13 13:58 | MHC.PC.OV ---
Vital Signs 02/13/24 14:06 Height 5 ft 8 in Weight 183 lb 8 oz BMI 27.9 BP 120/70 Blood Pressure Location Rt brachial Position Sitting Pulse 63 Pulse Source Pulse Oximeter Pulse Oximetry (%) 99 Oxygen Delivery Method Room Air Intake Visit Reasons: annual exam Intake Note: Patient is here today for a physical. [employer] Delivery Driver Required: No Plaster Foreman: Not Required per policy Accompanied by: Self / Same As Patient Allergies amoxicillin Allergy (Unknown, Verified 02/13/24 14:29) hives Medication List - Last Reconciled 02/13/24 by Marisa Liu PA-C albuterol sulfate 90 mcg/actuation (Proventil HFA) 2 puffs inhalation Q4-6H PRN etonogestrel (Nexplanon) subdermal fluoxetine 40 mg PO ONCE loratadine 10 mg PO DAILY PRN methylphenidate HCl ER (Concerta) 54 mg PO QAM sennosides (Senna Laxative) 17.2 mg (2 x 8.6 mg) PO BEDTIME triamcinolone acetonide 0.1% 1 appl topical BID Tobacco use date assessed: 02/13/24 Dental Screening Dental Screen Date: 02/13/24 Did you have a dental visit in the last 12 months?: No Did you have a dental problem in the last 6 months where you did not have access to dental care?: No Was dental information given to patient?: No HPI annual exam HPI Details 23-year-old female with past medical history of eczema, anxiety, depression, asthma last seen November 2023 coming in for annual exam. Patient tells us today she has been dealing with family stress. She is not taking her Concerta any longer as she does not like the way it makes her feel. She does continue to take the Prozac and finds good benefit with this and think she would benefit from a counselor. She follows with gynecology through [facility] and has had routine Pap smears. She has not been taking the senna as prescribed by GI but has been drinking plenty of water and increasing exercise and fiber intake. [facility] Surgical History No pertinent past surgical history Family History Mother Hiatal hernia Type 1 diabetes Hypertension Fibromyalgia Depression Anxiety Mental health disorder Father Hypertension Anxiety Depression Bipolar 1 disorder History of knee replacement Hypoglycemia Drug use disorder Substance use disorder Mental health disorder Social History Household Members: Family Both parents involved: Yes Housing: House Patient Tobacco Use Status: Never used Tobacco (marijuana ) e-Cigarette/Vaping Use: Currently Using Second Hand Smoke Exposure: No Substance Use Type: Marijuana service: No Current occupational status: employed Current occupation: dispatcher Cognitive needs: No Hearing needs: No Vision needs: Yes Questionnaire PHQ-9 Over the last 2 weeks, how often have you been bothered by any of the following problems? 1. Little interest or pleasure in doing things: several days 2. Feeling down, depressed, or hopeless: more than half the days 3. Trouble falling or staying asleep, or sleeping too much: several days 4. Feeling tired or having little energy: several days 5. Poor appetite or overeating: not at all 6. Feeling bad about yourself - or that you are a failure or have let yourself or your family down: more than half the days 7. Trouble concentrating on things, such as reading the newspaper or watching television: more than half the days 8. Moving or speaking so slowly that other people could have noticed. Or the opposite - being so fidgety or restless that you have been moving around a lot more than usual: not at all 9. Thoughts that you would be better off or of hurting yourself in some way: several days Total score: 10 Depression Screening Interpretation: Positive (refer to counselor) Depression Screening Follow-up: Existing condition and In treatment Depression Screening Done: Yes Source: Developed by Drs. Karlos Lombardi, Penny Little, Marino Bar and colleagues, with an educational kingsley from [employer]. Thrive Questionnaire Date Thrive assessed: 02/13/24 I am a: Patient What is your living situation today?: I have a steady place to live Within the past 12 months, did the food you bought not last and you didn't have the money to get more?: Never true Within the past 12 months, did you worry whether your food would run out before you got money to buy more?: Never true Do you have trouble paying for medicines?: No Do you have trouble getting transportation to medical appointments?: No Do you have trouble paying your heating and electricity bill?: No Do you have trouble taking care of your child, family member or friend?: No Do you have trouble with day-to-day activities such as bathing, preparing meals, shopping, managing finances, etc.?: No Are you currently unemployed and looking for a job?: No Are you interested in more education?: No Please select the resources that you would like help with: None Currently or been in a relationship where the following occur: No concerns reported THRIVE Score: 0 AUDIT C Alcohol Use Questionnaire (AUDIT-C) 1. How often do you have a drink containing alcohol?: Monthly or less 2. How many drinks containing alcohol do you have on a typical day when you are drinking?: 1 or 2 Total Score: 1 ARPIT-7 AMB Questionnaire ARPIT-7 Date ARPIT - 7 assessed: 02/13/24 Feeling nervous, anxious, or on edge: 2 = More than half the days Not being able to stop or control worryin = Several days Worrying too much about different things: 1 = Several days Trouble relaxin = Several days Being so restless that it is hard to sit still: 1 = Several days Becoming easily annoyed or irritable: 1 = Several days Feeling afraid as if something awful might happen: 1 = Several days Total ARPIT-7 score (0-4 normal; 5-9 mild; 10-14 moderate; 15-21 severe): 8 Source: Developed by Drs. Karlos Lombardi, Penny Little, Marino Bar and colleagues, with an educational kingsley from [employer]. Review of Systems Const Denies body aches, Denies fatigue, Denies fever(s), Denies frequent falls, Denies headache(s) and Denies weakness Eyes Reports no additional complaints and Denies change in vision ENT Denies dysphagia, Denies dizziness, Denies facial pain, Denies headache(s), Denies nasal congestion and Denies odynophagia Card Denies chest pain, Denies syncope, Denies irregular heart rhythm, Denies leg edema, Denies lightheadedness and Denies dyspnea Resp Denies cough and Denies dyspnea GI Denies abdominal pain, Reports constipation, Denies dysphagia, Denies dyspepsia, Denies diarrhea, Denies nausea, Denies odynophagia and Denies vomiting Denies urinary frequency, Denies dysuria, Denies urinary hesitancy and Denies urinary urgency Musc Denies back pain and Denies myalgias Skin/Breast Reports system reviewed and no additional complaints, except as documented Neuro Denies dizziness, Denies syncope, Denies frequent falls, Denies headache(s) and Denies weakness Psych Reports no additional complaints Endo Denies fatigue Physical exam (Primary Care) Vital Signs: Last Vital Signs Pulse 63 02/13/24 14:06 BP 120/70 02/13/24 14:06 Pulse Ox 99 02/13/24 14:06 Oxygen Delivery Method Room Air 02/13/24 14:06 BMI result Body Mass Index 27.9 Tobacco/Smoking Status: Tobacco use Status Tobacco use date assessed 02/13/24 02/13/24 14:14 Patient Tobacco Use Status Never used Tobacco ( 02/13/24 14:10 marijuana ) e-Cigarette/Vaping Use Currently Using 02/13/24 14:14 PHQ-9: PHQ-9 Score PHQ-9: Total score 10 02/13/24 14:38 Depression Screening Interpretation: Positive (refer to counselor) Depression Screening Follow-up: Existing condition and In treatment Thrive Assessment: Date of Thrive Assessment Date Thrive assessed 02/13/24 02/13/24 13:59 Currently or been in a relationship where the following occur: No concerns reported Const General: cooperative, healthy appearing, comfortable and no acute distress Orientation/consciousness: patient oriented x3 HENMT Head: Yes normocephalic Ears: hearing grossly normal bilaterally, external ears normal, TM's normal bilaterally and EAC's normal General nose exam: Normal external nose present Face and sinus: Yes normal facial exam and Yes sinuses nontender Mouth: Normal oral and palatal mucosa present and tongue normal Throat: Yes posterior oropharynx normal Eyes General: appearance normal, both eyes and all related structures Conjunctivae: conjunctivae normal Pupils: Equal, round and reactive pupils present EOM: EOMs intact bilaterally and No Nystagmus present Neck Neck: Yes normal visual inspection, Yes full ROM and Yes no lymphadenopathy Chest Chest palpation & inspection: normal inspection of the chest Resp Effort & Inspection: normal respiratory effort Auscultation: clear to auscultation bilaterally, no crackles, no rales, no rhonchi, no wheezes and breath sounds present Cardio Rate: regular rate Rhythm: regular rhythm Peripheral pulses: radial pulses present and dorsalis pedis present GI Inspection: Yes normal to inspection and No Abdominal wall edema Palpation (GI): Soft to palpation, not firm and nontender Auscultation: normal bowel sounds Rectal Exam - Female: deferred General: Yes no CVA tenderness Back/Spine/Pelvis Back: no CVA tenderness Skin General skin exam: no rashes or lesions noted Neuro General: patient oriented x3 Cranial nerves: Yes Equal, round and reactive pupils present, Yes Midline tongue present, Yes Ability to bilaterally elevate shoulders present and No Nystagmus present Gait exam (Neuro): Normal gait present Extrem General: Yes normal to inspection, Yes full ROM, No no pedal edema and No edema Psych Speech and movement: Normal speech and movement present Affect: normal affect Insight: Good insight present (Psych) Judgement: Good judgement present (Psych) Immunizations Boostrix Tdap 2.5 Lf unit-8 mcg-5 Lf/0.5 mL intramuscular syringe Performing Provider: Marisa Liu PA-C Performing [facility] [place] [facility] Administered by: Yesi Patel LPN on 02/13/24 15:01 Dose Route Admin Location Dispensed Lot Number Expiration Date [facility] Canoe Inspector 0.5 mL IM Left Deltoid 0.5 mL [id number] 03/06/26 [id number] [employer] VIS Given Date VIS Provided VIS Publication Date 02/13/24 Single Vaccine 20 Eligibility Eligibility Date Funding Source Not [facility] Eligible 02/13/24 Private Coding Diagnoses Chronic idiopathic constipation K59.04 Mild intermittent asthma J45.20 Eczema L30.9 Anxiety and depression F41.9; F32.9 Esophageal reflux K21.9 Annual physical exam Z00.00 Assessment & Plan Assessment & Plan (1) Chronic idiopathic constipation: Code(s): K59.04 - Chronic idiopathic constipation Category: Medical Plan: Currently following with Gastroenterology started on senna but was discontinued. Patient did miss her follow up advised to reach out to GI for repeat appointment. Continue to encourage high-fiber diet and plenty of water. (2) Mild intermittent asthma: Code(s): J45.20 - Mild intermittent asthma, uncomplicated Category: Medical Plan: Asthma currently controlled on present medications. Continue on albuterol as needed. Avoid triggers such as allergies. (3) Eczema: Comment: well controlled with occ use of triamcinolone Code(s): L30.9 - Dermatitis, unspecified Category: Medical Plan: On triamcinolone as needed. Advised patient not to use this medication for longer than 2 weeks at a time. (4) Anxiety and depression: Comment: Follows with psychiatrist Radha Eugene - takes prozac and concerta. Code(s): F41.9 - Anxiety disorder, unspecified; F32.9 - Major depressive disorder, single episode, unspecified Category: Medical Plan: Follows with psychiatrist currently being prescribed Prozac and Concerta feels her symptoms are well managed at this time. Referral placed for counseling. (5) Esophageal reflux: Code(s): K21.9 - Gastro-esophageal reflux disease without esophagitis Category: Medical Plan: Avoid trigger foods such as citrus, tomato products, soda, caffeine, spicy foods and other foods that may be irritating to your stomach. Avoid laying flat 3-4 hours after eating and elevate the head of the bed 30 degrees to prevent acid from moving into the esophagus. (6) Annual physical exam: Code(s): Z00.00 - Encounter for general adult medical examination without abnormal findings Category: Medical Plan: Patient is up-to-date on all recommended routine screenings and vaccinations for her age. She is due for tetanus vaccine which was updated today. Plan This note was constructed using voice recognition software. While every effort has been made to ensure accuracy and branding machine tender, still areas may have been included sometimes these areas may affect the content or meeting of the given symptoms. Total time spent caring for the patient today was 30 minutes. This includes time spent before the visit reviewing the chart, time spent during the visit, and time spent after the visit and documentation. Orders: Orders TDaP Immunization Today Z23 - Encounter for immunization Referrals Optometry Referral Z00.00 - Encounter for general adult medical examination without abnormal findings Counseling Referral F32.9 - Major depressive disorder, single episode, unspecified, F41.9 - Anxiety disorder, unspecified Medications: New cholecalciferol (vitamin D3) 25 mcg PO DAILY 90 caps 3RF
[2024-02-13 14:06] VITALS: BP 120/70; PULSE 63; O2SAT 99; BMI 27.9
== END 2024-02-13 14:55 | disposition home or self-care (01) ==
DX: Z23 Encounter for immunization (principal)

== ENCOUNTER → 2024-02-13 13:51 | Outpatient (BNVA) | payer OTHER, SELFPAY | PROVIDERS: PCP Physician Assistant | DX: Z00.00 Encounter for general adult medical examination without abnormal findings (principal); J45.20 Mild intermittent asthma, uncomplicated; K59.04 Chronic idiopathic constipation; L30.9 Dermatitis, unspecified; F41.9 Anxiety disorder, unspecified; F32.9 Major depressive disorder, single episode, unspecified; K21.9 Gastro-esophageal reflux disease without esophagitis; Z23 Encounter for immunization | CPT/HCPCS: 90471; 90715; 99395 ==